=== PATIENT | female | born 1970 | race Caucasian/White ===

== ENCOUNTER 2016-08-28 06:37 | Emergency (ER) | payer OTHER ==
[2016-08-28 07:26] VITALS: TEMP 98.6; BMI 34.7
--- NOTE | 2016-08-28 07:28 | PDOC ---
History of Present Illness - General Chief Complaint: Injury Stated Complaint: FALL Time Seen by Provider: 08/28/16 07:13 History Source: Patient Exam Limitations: No Limitations - History of Present Illness Initial Comments: 08/28/16 07:51 46y F hx of htn, presents s/p slip and fall. The pt was at work when she slipped , landing on her back, complaining of pain to her lower back and back of her head. The pt states her head hit the ground, she denies any loc, n/v. she endorses severe headache and feels like the room is spinning, pt states it hurts her lower back when she is moving around. pt denies any numbness/tingling/ weakness, extremity pain. pt not on asa or any blood thinners Past History - Past Medical History Allergies/Adverse Reactions: Allergies Allergy/AdvReac Type Severity Reaction Status Date / Time Penicillins Allergy Verified 08/28/16 07:12 Home Medications: Ambulatory Orders Losartan Potassium 10 mg PO DAILY 08/28/16 Asthma: Yes HTN: Yes - Psycho/Social/Smoking Cessation Hx Suicidal Ideation: No Smoking History: Never smoked Hx Alcohol Use: No Drug/Substance Use Hx: No Review of Systems - Review of Systems Able to Perform ROS?: Yes Comments:: 08/28/16 07:53 Constitutional - no reported Fever, Chills, weakness, HEENT: no reported vision changes, sore throat Respiratory: no reported cough, sob, hemoptysis Cardiac: no reported chest pain, palpitations, light headedness, leg swelling Abd/GI: no reported abd pain, nausea, vomiting, blood per rectum, melena, diarrhea : no reported dysuria, frequency, discharge Musculskelatal - +back pain no reported joint swelling skin - no reported bruising, erythema, rash neurological: +headache, no reported numbness, focal weakness, tingling, ataxia , weakness hematologic: no reported anemia, easy bruising, easy bleeding *Physical Exam - Vital Signs Last Vital Signs Temp Pulse Resp BP Pulse Ox 98.6 F 70 16 151/64 100 08/28/16 07:08 08/28/16 07:08 08/28/16 07:08 08/28/16 07:08 08/28/16 07:08 - Physical Exam Comments: 08/28/16 07:53 GENERAL: The patient is awake, alert, and fully oriented, anxious appearing HEAD: Normocephalic, atraumatic., mild tenderness to posterior scalp w/o stepoffs, crepitus EYES: pupils 3mm and reactive to light ENT: Normal voice, Moist mucous membranes. NECK: Normal range of motion, supple LUNGS: Breath sounds equal, clear to auscultation bilaterally. No wheezes, no rhonchi, no rales. HEART: Regular rate and rhythm, normal S1 and S2 without murmur, rub or gallop. ABDOMEN: Soft, nontender, normoactive bowel sounds. No guarding, no rebound. . No CVA tenderness EXTREMITIES: Normal range of motion, no edema. No clubbing or cyanosis. No cords, erythema, or tenderness. NEUROLOGICAL: No facial assymetry, Normal speech, PSYCH: Normal mood, normal affect. SKIN: Warm, Dry, normal turgor, BACK: No midline tenderness to the cervical, thoracic, mild tenderness to sacrum in midline, +parapsinal tenderness to lumbar region L>R MUSCULOSKELTAL: FROM of b/l shoulders, elbows, wrist. FROM of hips, knees, ankles - No signs of ecchymosis, erythema, or crepitus noted on palpation extremities, chest wall, clavicals, ribs, back. Medical Decision Making - Medical Decision Making 08/28/16 07:55 46-year-old female presenting status post slip and fall Not on any a/c Patient complaining of pain to the posterior back lower back as well as the occiput Will obtain x-ray of the patient's low back of results CT head Will give acetaminophen for symptomatic relief 08/28/16 09:[address] negative pt still in discomfort suspect muscle spasm will give some toradol and valium and reassess 08/28/16 11:20 The pt is feeling improved will d/c the pt with supportive measures, I discussed the physical exam findings, ancillary test results and final diagnoses with the patient. I answered all of the patient's questions. The patient was satisfied with the care received and felt comfortable with the discharge plan and treatment plan. The patient will call their primary care physician within 24 hours to arrange follow-up and will return to the Emergency Department with any new, persistent or worsening symptoms. *DC/Admit/Observation/Transfer Diagnosis at time of Disposition: Head injury Qualifiers: Encounter type: initial encounter Qualified Code(s): S09.90XA - Unspecified injury of head, initial encounter Unspecified fall due to ice and snow, initial encounter Qualifiers: Encounter type: initial encounter Qualified Code(s): W00.9XXA - Unspecified fall due to ice and snow, initial encounter Lower back pain Qualifiers: Chronicity: acute Back pain laterality: bilateral Sciatica presence: without sciatica Qualified Code(s): M54.5 - Low back pain - Discharge Dispostion Disposition: HOME Condition at time of disposition: Improved Admit: No - Referrals Referrals: STAFF,NOT ON [Primary Care Provider] - - Patient Instructions Printed Discharge Instructions: DI for Closed Head Injury, DI for Low Back Pain Additional Instructions: Return to the emergency department immediately with ANY new, persistent or worsening symptoms. Take ibuprofen Tylenol for pain, use heat for comfort. You MUST call and follow up with your doctor in 2-3 days for further evaluation of your symptoms. Results were discussed with you. Please make sure your doctor reviews the results of your emergency evaluation. - Post Discharge Activity Work/School Note: Back to Work
[2016-08-28] MEDS ORDERED: ACETAMINOPHEN 325 MG TABLET (FP) PO ONE (07:29)
[2016-08-28] MEDS ORDERED: ACETAMINOPHEN 325 MG TABLET (FP) ONE (07:41)
[2016-08-28] MEDS ORDERED: KETOROLAC TROMETHAMINE 60 MG/2 ML VIAL IM ONE (09:53)
[2016-08-28] MEDS ORDERED: diazePAM 5 MG TABLET PO ONE (09:53)
[2016-08-28] MEDS ORDERED: KETOROLAC TROMETHAMINE 60 MG/2 ML VIAL ONE (09:57)
[2016-08-28] MEDS ORDERED: diazePAM 5 MG TABLET ONE (09:58)
[2016-08-28 12:08] VITALS: BP 140/86; PULSE 66
== END 2016-08-28 12:10 | disposition home or self-care (01) ==
LOC: JER 06:37
PROC: 3E0233Z Introduction of Anti-inflammatory into Muscle, Percutaneous Approach (ICD-10-PCS; principal; 2016-08-28)
DX: S09.8XXA Other specified injuries of head, initial encounter (principal); M54.5 Low back pain; W00.0XXA Fall on same level due to ice and snow, initial encounter; Y93.89 Activity, other specified; Y92.69 Other specified industrial and construction area as the place of occurrence of the external cause; Y99.0 Civilian activity done for income or pay
CPT/HCPCS: 70450-TC; 72100-TC; 96372; 99281-25